=== PATIENT | female | born 1995 | race Two or more races ===

== ENCOUNTER 2024-06-19 13:06 | Emergency (ER) | payer MEDICAID, SELFPAY ==
[2024-06-19 13:38] VITALS: BP 105/69; PULSE 96; RESP 16; TEMP 37.1; O2SAT 100; BMI 21.0
--- NOTE | 2024-06-19 13:42 | XR_ITS ---
Examination: Complete OB ultrasound, less than 14 weeks, transabdominal Date and time of exam: June 19, 2024 1348 hrs. Indications: Vaginal bleeding lower back pain beginning today Technique: Obstetrical ultrasound images less than 14 weeks performed via transabdominal imaging Findings: A normal shaped single intrauterine gestation is present in the uterus. pole 7.3 cm corresponds to 13 weeks 3 days gestational age Cardiac motion 160 BPM Placenta posterior No subchorionic hemorrhage Ultrasonographic survey of visible and placental structures unremarkable. Amniotic fluid volume appears appropriate for this estimated gestational age. Right ovary 3.8 x 3.0 x 3.2 cm arterial flow Left ovary obscured by bowel gas Impression: Viable intrauterine gestation 13 weeks 3 days.
--- NOTE | 2024-06-19 13:42 | PD.EDRME ---
Rapid Medical Screening Exam RME Arrival date/time: 06/19/24 13:06 29-year-old female presents to the emerged department with complaints of vaginal bleeding approximately 13 weeks Chief Complaint: Vaginal Bleeding Time Seen by Provider: 06/19/24 13:23 Vital signs: Vital Signs Temperature 98.7 F 06/19/24 13:38 Pulse Rate 96 06/19/24 13:38 Respiratory Rate 16 06/19/24 13:38 Blood Pressure 105/69 06/19/24 13:38 Pulse Oximetry (%) 100 06/19/24 13:38 Oxygen Delivery Method Room Air 06/19/24 13:38
[2024-06-19 15:31] LABS: Collection Type, Urine Clean Catch
[2024-06-19 15:33] LABS: Basophils % (Auto) 0 % (0-2.5); Eosinophils % (Auto) 0 % (0-10); Hematocrit 37.4 % (36.0-46.0); Hemoglobin 12.2 g/dL (12.0-16.0); Immature Granulocytes % (Auto) 0 % (0-0); Immature Granulocytes Auto 0.01 Thou/mm3 (0.00-0.00); Lymphocytes # (Auto) 0.8 Thou/mm3 (1.0-4.8); Lymphocytes % (Auto) 19 % (10-50); Mean Corpuscular HGB Conc 32.6 g/dl (31.0-37.0); Mean Corpuscular Hemoglobin 26.5 pg (25.0-35.0); Mean Corpuscular Volume 81 fL (80-100); Monocytes # (Auto) 0.3 Thou/mm3 (0.0-0.8); Monocytes % (Auto) 6 % (0-12); Neutrophils # (Auto) 3.4 Thou/mm3 (1.8-7.7); Neutrophils % (Auto) 75 % (37-80); Nucleated Red Blood Cell % 0 /100 WBC (0); Platelet Count 278 Thou/mm3 (140-440); RDW Standard Deviation 46.9 fL (36.4-46.3); White Blood Count 4.5 Thou/mm3 (3.6-11.0)
--- NOTE | 2024-06-19 15:54 | EDNOTE_ITS ---
ED General RME/HPI General Chief complaint: Vaginal Bleeding Stated complaint: 13 weeks OB, vaginal bleeding today Time Seen by Provider: 06/19/24 13:23 Arrival date/time: 06/19/24 13:06 CC: Vaginal bleeding HPI ongoing for the past 3 hours patient is vague at describing where there is vaginal spotting or vaginal bleeding but denies any clots. The patient is a at estimated 13 weeks denies lower back pain abdominal cramping nausea vomiting headache or fever. RME / HPI RME / HPI narrative: 06/19/24 13:06 29-year-old female presents to the emerged department with complaints of vaginal bleeding approximately 13 weeks Related Data Previous Rx's ?Medication ?Instructions ?Recorded Hydrocodone/Acetaminophen * (NORCO 1 tab PO Q4H PRN ABDOMINAL PAIN 04/15/17 5/325 *) #30 tabs cephalexin 500 mg capsule 500 mg PO Q12H #14 caps 06/19/24 Allergies Allergy/AdvReac Type Severity Reaction Status Date / Time NKA* Allergy Uncoded 07/19/20 14:02 Review of Systems Review of Systems Narrative Review of Systems: GEN: No fever, no chills, no weight loss EYES: No discharge, no visual changes, no pain HEENT: No ear pain, no congestion, no sore throat PULM: No shortness of breath, no cough, no congestion CV: No chest pain, no dyspnea on exertion, no palpitations GI: No nausea, no vomiting, no diarrhea, no pain, no constipation : No frequency, no urgency, no dysuria MUSC/SKEL: No joint pain, no back pain SKIN: No rash PSYCH: No hallucinations, no depression HEME/LYMPH: No easy bleeding or bruising tendencies NEURO: No weakness, no headache Past Medical History Past Medical History CARDIAC: Negative Congestive Heart Failure RESPIRATORY: Negative Chronic Obstructive Pulmonary Disease (COPD) GENITOURINARY: Negative Renal Disease ENDOCRINE: Negative Diabetes Mellitus Type 1 or Diabetes Mellitus Type 2 Surgical History SURGICAL: Positive Section Social History SMOKING STATUS: Never smoker ED Exam Narrative Physical exam: [General: Not in any acute distress Head normocephalic HEENT: Eyes within acceptable limits Neck is supple nontender Chest equal chest rise nontender to palpation Respiratory: Clear to auscultation no wheezes crackles or rubs CV: Rate rhythm is regular no murmurs rubs or clicks Abdomen is distended secondary to body habitus soft nontender no masses positive bowel sounds all 4 quadrants Back: No CVA tenderness no spinous process tenderness from cervical spine thoracic and lumbar spine Skin: Intact no petechiae rash induration ulceration or crepitus Extremities: Moving all extremities against resistance cap refill less than 2 seconds neurosensory intact Neuro: Awake alert oriented x3 Glascow coma 15 no focal deficits] Course Quality Measures none Orders Category Date Time Status US OB <= 14 weeks fetus Stat Exams 06/19/24 13:42 Completed ABO/RH Type Stat Lab 06/19/24 15:05 Completed Beta HCG,Quantitative Stat Lab 06/19/24 15:05 Completed CBC Stat Lab 06/19/24 15:05 Completed Comprehensive Metabolic Panel Stat Lab 06/19/24 15:05 Completed UA [Urinalysis] Stat Lab 06/19/24 15:25 Completed Urine Culture Stat Lab 06/19/24 15:25 Received Vital Signs Vital signs: Vital Signs Temperature 98.7 F 06/19/24 13:38 Pulse Rate 96 06/19/24 13:38 Respiratory Rate 16 06/19/24 13:38 Blood Pressure 105/69 06/19/24 13:38 Pulse Oximetry (%) 100 06/19/24 13:38 Oxygen Delivery Method Room Air 06/19/24 13:38 [facility] Patient data External records reviewed:: [facility] previous records Clinical information provided by:: patient and spouse Social determinants that could affect healthcare access:: none Patient has the following chronic illnesses:: None How is presenting disease/condition affected by chronic disease/condition?: u neffected by Evaluation data The following diagnostics were reviewed and interpreted by me:: lab results and radiology exam(s) Lab and/or radiology exams considered but not ordered:: Ultrasound shows a single IUP 13 weeks 3 days heart tones are 160s CBC shows no acute electrolyte imbalances renal impairment transaminitis or T. bili elevation. Quantitative hCG is 76,000, urine is positive for urinary tract infection ABO Rh is positive. Interpretation Summary: Single IUP, UTI Medications Medications considered but not ordered:: None Medication administrations:: None Consultations Consultation(s) initiated? (list below): No Diagnosis Differential Diagnosis ED Complaint MDM: UTI SAB ectopic IUP Most likely diagnosis given after review of the tests above:: First trimester vaginal bleeding urinary tract infection Admission Indicated Admission indicated?: not indicated Explain why admission is indicated or not indicated:: Stable for outpatient follow-up Admission Request Was there a request for admission?: No Disposition Plan Disposition Plan: Discharge Discharge Attestation Discharge Attestation: The patient and all family members were given an opportunity to ask questions and understood the discharge instructions. Discharge instructions specifically effects, indications for sooner follow up or return to the emergency department, and the expected course of current diagnosis. Patient condition: Stable Medical Decision Making Differential Diagnosis Differential Diagnosis: UTI SAB ectopic IUP Lab Data 06/19/24 15:05 06/19/24 15:05 Labs: Lab Results 06/19/24 06/19/24 Range/Units 15:05 15:25 WBC 4.5 (3.6-11.0) Thou/mm3 RBC 4.60 (4.00-5.20) Miln/mm3 Hgb 12.2 (12.0-16.0) g/dL Hct 37.4 (36.0-46.0) % MCV 81 (80-100) fL MCH 26.5 (25.0-35.0) pg MCHC 32.6 (31.0-37.0) g/dl RDW Std Deviation 46.9 H (36.4-46.3) fL Plt Count 278 (140-440) Thou/mm3 Neut % (Auto) 75 (37-80) % Lymph % (Auto) 19 (10-50) % Thomas % (Auto) 6 (0-12) % Eos % (Auto) 0 (0-10) % Baso % (Auto) 0 (0-2.5) % Neut # (Auto) 3.4 (1.8-7.7) Thou/mm3 Lymph # (Auto) 0.8 L (1.0-4.8) Thou/mm3 Thomas # (Auto) 0.3 (0.0-0.8) Thou/mm3 Eos # (Auto) 0.0 (0.0-0.5) Thou/mm3 Baso # (Auto) 0.0 (0.0-0.2) Thou/mm3 Immature Gran # (Auto) 0.01 H (0.00-0.00) Thou/mm3 Absolute Nucleated RBC 0.00 (0.00-0.00) Thou/mm3 Immature Gran % 0 (0-0) % Nucleated RBC % 0 (0) /100 WBC Sodium 136 (136-145) mMol/L Potassium 3.9 (3.4-5.1) mMol/L Chloride 103 (98-107) mMol/L Carbon Dioxide 22.2 (20.0-31.0) mMol/L Anion Gap 11 (7-16) BUN 8 L (9-23) mg/dL Creatinine 0.7 (0.6-1.3) mg/dL Estim Creat Clear Calc 93.8 (>60) mL/min eGFR > 60 (60 - ) See Note BUN/Creatinine Ratio 11 L (12-20) Ratio Glucose 78 (74-106) mg/dL Calculated Osmolality 269 L (275-295) Calcium 9.7 (8.3-10.6) mg/dL Corrected Calcium 9.7 (8.5-10.1) mg/dL Total Bilirubin 0.4 (0.3-1.2) mg/dL AST 16 (0-34) U/L ALT 12 (10-49) U/L Alkaline Phosphatase 52 (46-116) U/L Total Protein 7.6 (5.7-8.2) gm/dL Albumin 4.9 (3.5-5.0) gm/dL Globulin 2.7 (2.3-3.5) gm/dL Albumin/Globulin Ratio 1.8 (1.2-2.2) Beta HCG, Quant 57114 (<5.0) mIU/mL Ur Collection Type Clean Catch Urine Color Brown A (Lt Yel-Yel) Urine Clarity Hazy (Clear/Hazy) Urine pH 6.0 (5.0-7.0) Ur Specific [place] 1.013 (1.001-1.035) Urine Protein 2+ A (Neg - Trace) Urine Glucose (UA) Negative (Negative) Urine Ketones 1+ A (Negative) Urine Blood 3+ A (Negative) Urine Nitrite Positive (Negative) Urine Bilirubin Negative (Negative) Urine Urobilinogen (Auto) Negative (0.0-1.0) mg/dL Ur Leukocyte Esterase Positive (Negative) Urine RBC 1394 H (0-3) /hpf Urine WBC 37 H (0-5) /hpf Ur Squamous Epith Cells 4 (0-5) /hpf Urine Bacteria 3+ A (None) Urine Sperm Present A (None) Blood Type O Negative Blood Bank Wristband ID Yes Discharge Plan Plan Patient Disposition: HOME (Self Care) Patient condition on transfer: Stable Prescriptions/Referrals Prescriptions/Med Rec: New cephalexin 500 mg capsule 500 mg PO Q12H Qty: 14 0RF No Action Hydrocodone/Acetaminophen * (NORCO 5/325 *) 1 TAB tablet 1 tab PO Q4H PRN (Reason: ABDOMINAL PAIN) Qty: 30 0RF Referrals: Demetri Coronado MD [Primary Care Provider] - In 1 week Problem List Clinical Impression: Vaginal bleeding in patient after first trimester, UTI (urinary tract infection) due to urinary indwelling catheter Patient/Caregiver Discharge Instructions Education Materials: Bleeding During Early , Urinary Tract Infections in Women Additional Instructions: Take the medications as prescribed follow-up with your OB if there is a worsening of symptoms including vaginal bleeding vaginal discharge return the emergency room for reevaluation. Print Language: Kyrgyz Stand Alone Forms: María Award Info., Patient Portal Info Letter, Work/School Release PA/WALLY Supervising Physician MAGGIE/WALLY Supervising Physician: Jensen Hong ENP
[2024-06-19 15:59] LABS: Bacteria,Urine 3+; Bilirubin,Urine Negative (Negative); Blood,Urine 3+ (Negative); Clarity,Urine Hazy (Clear/Hazy); Color,Urine Brown (Lt Yel-Yel); Glucose, Urine Negative (Negative); Ketones,Urine 1+ (Negative); Leukocyte Esterase,Urine Positive (Negative); Nitrite,Urine Positive (Negative); Protein,Urine 2+ (Neg - Trace); RBC,Urine 1394 /hpf (0-3); Specific Gravity,Urine 1.013 (1.001-1.035); Sperm,Urine Present; Squamous Epithelial Cell,Urine 4 /hpf (0-5); Urobilinogen,Urine Negative mg/dL (0.0-1.0); WBC,Urine 37 /hpf (0-5)
[2024-06-19 16:04] LABS: Alanine Aminotransferase 12 U/L (10-49); Albumin, Serum 4.9 gm/dL (3.5-5.0); Albumin/Globulin Ratio 1.8 (1.2-2.2); Alkaline Phosphatase 52 U/L (46-116); Anion Gap 11 (7-16); Aspartate Amino Transferase 16 U/L (0-34); BUN/Creatinine Ratio 11 Ratio (12-20); Bilirubin,Total 0.4 mg/dL (0.3-1.2); Blood Urea Nitrogen 8 mg/dL (9-23); Calcium 9.7 mg/dL (8.3-10.6); Calcium (Corrected) 9.7 mg/dL (8.5-10.1); Carbon Dioxide 22.2 mMol/L (20.0-31.0); Chloride 103 mMol/L (98-107); Creatinine (Component) 0.7 mg/dL (0.6-1.3); Estimated Creatinine Clearance 93.8 mL/min (>60); Globulin 2.7 gm/dL (2.3-3.5); Glucose 78 mg/dL (74-106); Osmolality,Calculated 269 (275-295); Potassium 3.9 mMol/L (3.4-5.1); Sodium 136 mMol/L (136-145); Total Protein 7.6 gm/dL (5.7-8.2); eGFR > 60 See Note
[2024-06-19 16:21] LABS: Beta HCG,Quantitative 76701 mIU/mL (<5.0)
[2024-06-19 16:47] VITALS: BP 108/77; PULSE 60; RESP 16; TEMP 36.9; O2SAT 99
== END 2024-06-19 16:45 | disposition home or self-care (01) ==
PROVIDERS: Nurse Practitioner Primary Care; Emergency Provider Emergency Medicine; PCP Family Medicine
DX: O20.9 Hemorrhage in early pregnancy, unspecified (principal); O23.41 Unspecified infection of urinary tract in pregnancy, first trimester; Z3A.13 13 weeks gestation of pregnancy
CPT/HCPCS: 36415; 76801; 80053; 81001; 84702; 85025; 86900; 86901; 87077; 87086; 87186; 99284

== ENCOUNTER 2025-02-06 15:36 | Outpatient (AMBR) | payer SELFPAY ==
--- NOTE | 2025-02-07 12:02 | LAC.VISIT ---
Assessment LAC Breast Assessment Breast Assessment Bilateral: Breast Assessment Comment: moms breasts are medium sized. they are soft, slightly full Alternative Milk Expression Alternative Milk Expression Alternative Method Used: Yes Method Used: Pumping Alternative Method Comment: mom states not pumping very often, maybe 4 times a day. Alternative Method Used Reason: Poor Feeding LAC Assessment Breast Feeding Assessment Date of : 12/23/24 Current Age of baby: 2 (months) Weight: 3260.195 g Current weight of baby: 4252.428 g Breast Feeding Ability: Fair Complications Comment: baby appears to have tongue tie and lip tie, he is struggling to stay on the breast without immediatley falling asleep. mom states that even bottle feeds are taking a very long time. baby can not latch onto the bottle nipple and dribbles a lot. also has clicking noises during feeds either on breast or bottle nipple. after observation of breast feed, baby did have clicking noises as well as a dimple in his cheek, showing that he was not latching very well. baby tolerated the nipple shield well and fed for about 8 minutes. he fel asleep and did wake up and start to cry. explained that baby is not transferring milk very well Activity Level: Awake / Alert and Crying [place] Muscle Tone: Tense Suck Quality: Tongue Retracts Effective Suck: Yes Swallow: Observed [place] Jaw: Receding and Clentched [place] Lip Seal: Poor, Chomping and Tight Lips Feeding Posistion: Cradle Additional Latch or Posistion Assistance Needed: Moderate Breast Feeding Comment: baby tolerated feed well with nipple shield. although he did not stay on the breast for more than 8 minutes. baby did transfer milk, was fussy even though he was getting milk. mom states that he is very gassy and acts like he has colic . he shlomo all the time during the day and doesn't settle even after feeds. LAC Intervention Interventions Tools: Nipple Shield and Pump Nipple Shield Size: Medium Techniques Discussed: Latch, Position and Pumping Discharge Follow Up Appointment Date and Time: day of/or after consult with oral surgeon or dentist Other Referral Made: Yes Feeding Preference at Discharge: Breast Milk and Formula LAC Latch Score LATCH Score Latch: Repeat Attempt to Hold Nipple Audible Swallow: Few, With Stimulation Nipple Type: Everted After Stimulation Comfort: Soft, Nontender Hold: Minimal Assistance Needed Total Score: 7 LAC Oral Assessment Oral Assessment Prenulum Level: Posterior Lip: Tight Upper Lip Palate: High Oral Assessment Comment: baby also exhibits receding chin causing baby to hold nipple in the mouth effectively. Dental Referral made: Yes (Dr. Muir) LAC Education Education : Education Topics: Infant Stomach Capacity, Milk Production, Suppression with Formula Use, Risk of Improper Latch Position, Signs of Adequate Intake and Stomach Capacity With Regard to Formula Teaching Methods: Electronic Education / Instruction, Verbal instruction and Demonstration Resource Information Given: [facility] Services and Dental Referral OP DC Assessment Discharge Follow Up Appointment Date and Time: day of/or after consult with oral surgeon or dentist Other Referral Made: Yes Visit Complete?: Yes
== END 2025-02-17 23:59 | disposition home or self-care (01) ==
LOC: HODLAC 15:36
DX: Z39.1 Encounter for care and examination of lactating mother (principal)

== ENCOUNTER 2025-02-13 16:42 | Outpatient (AMBR) | payer SELFPAY ==
--- NOTE | 2025-02-14 17:02 | LAC.VISIT ---
Assessment Alternative Milk Expression Alternative Milk Expression Alternative Method Used: Yes Method Used: Pumping Alternative Method Used Reason: Poor Feeding LAC Assessment Breast Feeding Assessment Breast Feeding Comment: Baby is doing a little better, he had tongue tie, lip tie and buccal pad revision yesterday with Dr. Muir. Mom really liked the doctor and feels that he did a thourogh job with baby. She states that is getting a little easier and baby staying at the beast longer and transfering bettermilk supply. LAC Intervention Interventions Tools: Nipple Shield Discharge Follow Up Appointment Date and Time: as needed Feeding Preference at Discharge: Breast Milk with Supplementation LAC Latch Score LATCH Score Latch: Repeat Attempt to Hold Nipple Audible Swallow: Spontaneous, Intermittent, Frequent Nipple Type: Everted After Stimulation Comfort: Soft, Nontender Hold: Minimal Assistance Needed Total Score: 8 LAC [place] Oral Assessment [place] Oral Assessment Prenulum Level: Normal Lip: Normal Exam Palate: Normal / Intact Dental Referral made: No OP DC Assessment Discharge Follow Up Appointment Date and Time: as needed Visit Complete?: Yes
== END 2025-02-17 23:59 | disposition home or self-care (01) ==
LOC: HODLAC 16:42
DX: Z39.1 Encounter for care and examination of lactating mother (principal)

== ENCOUNTER 2025-03-17 19:41 | Emergency (ER) | payer MEDICAID, SELFPAY ==
[2025-03-17 19:42] VITALS: BMI 28.1
[2025-03-17 20:56] VITALS: BP 119/72; PULSE 69; RESP 20; TEMP 37; O2SAT 98
--- NOTE | 2025-03-17 21:00 | XR_ITS ---
Examination: CT abdomen and pelvis without contrast. Coronal 3-D reconstructions. Sagittal 2-D reconstructions. Date and time of exam:March 09, 2025 10:34 PM Indications: Left-sided abdominal pain radiating to the back beginning 3 months ago CTDI: vol (mGy): 7.79 DLP: (mGycm): 379 Technique: Axial images of the abdomen have been obtained, 3 mm slice thickness Intravenous contrast material has not been administered. Low dose protocols were performed. One or more of the following dose reduction techniques were used; automated exposure control, adjustment of the mA and/or KV according to patient size, use of iterative reconstruction technique. Findings: No focal liver or splenic lesion Contracted gallbladder No pancreatic or adrenal mass No renal or ureteral calculi, no hydronephrosis Normal appendix Moderate to large amounts of stool throughout the colon No obstruction No diverticulitis Urinary bladder intact Anteverted uterus Osseous structures intact Impression: No renal or ureteral calculi, no hydronephrosis Normal appendix Moderate to large amounts of stool throughout the colon
[2025-03-17 21:30] LABS: Basophils # (Auto) 0.0 Thou/mm3 (0.0-0.2); Basophils % (Auto) 0 % (0-2.5); Eosinophils # (Auto) 0.1 Thou/mm3 (0.0-0.5); Eosinophils % (Auto) 2 % (0-10); Hematocrit 37.6 % (36.0-46.0); Hemoglobin 11.9 g/dL (12.0-16.0); Immature Granulocytes Auto 0.01 Thou/mm3 (0.00-0.00); Lymphocytes # (Auto) 2.0 Thou/mm3 (1.0-4.8); Lymphocytes % (Auto) 41 % (10-50); Mean Corpuscular HGB Conc 31.6 g/dl (31.0-37.0); Mean Corpuscular Hemoglobin 26.8 pg (25.0-35.0); Mean Corpuscular Volume 85 fL (80-100); Monocytes # (Auto) 0.4 Thou/mm3 (0.0-0.8); Monocytes % (Auto) 7 % (0-12); Neutrophils # (Auto) 2.4 Thou/mm3 (1.8-7.7); Neutrophils % (Auto) 49 % (37-80); Nucleated Red Blood Cell # 0.00 Thou/mm3 (0.00-0.00); Nucleated Red Blood Cell % 0 /100 WBC (0); Platelet Count 290 Thou/mm3 (140-440); RDW Standard Deviation 44.8 fL (36.4-46.3); Red Blood Count 4.44 Miln/mm3 (4.00-5.20); White Blood Count 4.8 Thou/mm3 (3.6-11.0)
[2025-03-17 21:39] LABS: Collection Type, Urine Clean Catch
[2025-03-17 21:46] LABS: Bilirubin,Urine Negative (Negative); Blood,Urine Negative (Negative); Clarity,Urine Clear (Clear/Hazy); Color,Urine Yellow (Lt Yel-Yel); Glucose, Urine Negative (Negative); Ketones,Urine Trace (Negative); Leukocyte Esterase,Urine Negative (Negative); Nitrite,Urine Negative (Negative); PH,Urine 6.0 (5.0-7.0); Protein,Urine Trace (Neg - Trace); RBC,Urine 2 /hpf (0-3); Specific Gravity,Urine 1.033 (1.001-1.035); Squamous Epithelial Cell,Urine 2 /hpf (0-5); Urobilinogen,Urine Negative mg/dL (0.0-1.0); WBC,Urine < 1 /hpf (0-5)
[2025-03-17 21:50] LABS: HCG Qualitative,Urine Negative
[2025-03-17 22:03] LABS: Alanine Aminotransferase 8 U/L (10-49); Albumin, Serum 4.7 gm/dL (3.5-5.0); Albumin/Globulin Ratio 1.9 (1.2-2.2); Alkaline Phosphatase 69 U/L (46-116); Anion Gap 10 (7-16); Aspartate Amino Transferase 13 U/L (0-34); BUN/Creatinine Ratio 13 Ratio (12-20); Bilirubin,Total 0.3 mg/dL (0.3-1.2); Blood Urea Nitrogen 20 mg/dL (9-23); Calcium 10.4 mg/dL (8.3-10.6); Calcium (Corrected) 10.4 mg/dL (8.5-10.1); Carbon Dioxide 26.1 mMol/L (20.0-31.0); Chloride 106 mMol/L (98-107); Creatinine (Component) 1.5 mg/dL (0.6-1.3); Estimated Creatinine Clearance 48.7 mL/min (>60); Globulin 2.5 gm/dL (2.3-3.5); Glucose 94 mg/dL (74-106); Lipase 30 U/L (12-53); Osmolality,Calculated 285 (275-295); Potassium 4.0 mMol/L (3.4-5.1); Sodium 142 mMol/L (136-145); Total Protein 7.2 gm/dL (5.7-8.2); eGFR 48 See Note
--- NOTE | 2025-03-17 23:32 | EDNOTE_ITS ---
ED Abdominal Pain RME/HPI General Chief Complaint: Abdominal Pain Stated complaint: LEFT SIDE ABDOMINAL PAIN Time seen by provider: 03/17/25 20:03 Arrival date/time: 03/17/25 19:41 This is a case of 29-year-old female with no medical history came in in the emergency room due to left-sided abdominal pain on and off for 3 days radiating to the left flank to left lumbar area patient denies any numbness weakness tingling sensation or incontinence to urine or stool patient has no bowel movement for 2 days she is constipated but no diarrhea no nausea no vomiting patient is status post section 3 months ago and currently breast- feeding Limitations: no limitations Related Data Previous Rx's ?Medication ?Instructions ?Recorded Hydrocodone/Acetaminophen * (NORCO 1 tab PO Q4H PRN AB DOMINAL PAIN 04/15/17 5/325 *) #30 tabs cephalexin 500 mg capsule 500 mg PO Q12H #14 caps 05/22 07/13 bisacodyl 10 mg rectal suppository 10 mg PA QDAY PRN c onstipation #12 03/17/25 (Dulcolax (bisacodyl)) ea ibuprofen 600 mg tablet 600 mg PO Q8H PRN pain #20 t abs 03/17/25 lidocaine 5 % topical patch 1 patch topical QDAY PRN p ain #15 03/17/25 (Lidoderm) ea polyethylene glycol 3350 17 17 g PO QDAY PRN constipat ion #119 03/17/25 gram/dose oral powder (Miralax) grams Allergies Allergy/AdvReac Type Severity Reaction Status Date / Time NKA* Allergy Uncoded 07/19/20 14:02 Review of Systems Review of Systems Systems Reviewed: All systems reviewed, normal except as documented Constitutional Constitutional: Reports system reviewed and no additional complaints, except as documented and Reports as per HPI ENT Ears, Nose, Mouth, and Throat: Denies dysphagia, Denies neck pain and Denies odynophagia Cardiovascular Cardiovascular: Reports system reviewed and no additional complaints, except as documented and Reports as per HPI Respiratory Respiratory: Reports system reviewed and no additional complaints, except as documented and Reports as per HPI Gastrointestinal Gastrointestinal: Reports system reviewed and no additional complaints, except as documented, Reports as per HPI, Reports abdominal pain, Denies belching, Denies bloating, Denies change in bowel habits, Denies change in stool character, Denies coffee ground emesis, Reports constipation, Denies cramping, Denies diarrhea, Denies dyspepsia, Denies dysphagia, Denies early satiety, Denies excessive flatus, Denies fecal incontinence, Denies heartburn, Denies hematemesis, Denies hematochezia, Denies loose stools, Denies melena, Denies nausea, Denies odynophagia, Denies tenesmus and Denies vomiting Musculoskeletal Musculoskeletal: Reports back pain and Denies neck pain Neurologic Neurologic: Reports system reviewed and no additional complaints, except as documented and Reports as per HPI Past Medical History Past Medical History CARDIAC: Negative Congestive Heart Failure RESPIRATORY: Negative Chronic Obstructive Pulmonary Disease (COPD) GENITOURINARY: Negative Renal Disease ENDOCRINE: Negative Diabetes Mellitus Type 1 or Diabetes Mellitus Type 2 Surgical History SURGICAL: Positive Section Social History SMOKING STATUS: Never smoker ED Exam General Limitations: Present no limitations General appearance: Present alert, in no apparent distress and other (Patient is awake alert oriented not in distress nontoxic looking well-hydrated well- nourished) Head Head exam: Present atraumatic, normocephalic and normal inspection Eye Eye exam: Present normal appearance, PERRL and EOMI ENT ENT exam: Present normal exam, normal oropharynx, mucous membranes moist and mucous membranes dry Neck Neck exam: Present normal inspection, full ROM and trachea midline; Absent tenderness, meningismus, lymphadenopathy or thyromegaly Chest Chest inspection: Present normal inspection and symmetric chest wall rise; Absent tenderness Respiratory Respiratory exam: Present normal lung sounds bilaterally; Absent respiratory distress, wheezes, stridor, accessory muscle use or prolonged expiratory phase Cardiovascular Cardiovascular exam: Present regular rate, normal rhythm and normal heart sounds; Absent bradycardia, tachycardia, irregular rhythm, systolic murmur or diastolic murmur Abdominal Exam Abdominal exam: Present soft and normal bowel sounds; Absent distention, tenderness, guarding, rebound, rigidity, diminished bowel sounds, hyperactive bowel sounds, hypoactive bowel sounds, trauma, psoas sign, obturator sign, heel tap sign, Cao's sign, Rovsing's sign, tenderness at McBurney's Point, ascites, mass or hernia Extremities Exam Extremities exam: Present normal inspection and full ROM Back Exam Back exam: Present normal inspection, full ROM, tenderness (Tenderness left lower ROM intact neurovascular intact no crepitation no deformity no paraspinal no paravertebral tenderness) and muscle spasm; Absent CVA tenderness (R), CVA tenderness (L), paraspinal tenderness, vertebral tenderness, rashes, sciatic notch tenderness (R), sciatic notch tenderness (L), straight leg raise (R) or straight leg raise (L) Neurological Exam Neurological exam: Present alert, oriented X3, CN II-XII intact, normal gait and reflexes normal; Absent motor sensory deficit Psychiatric Psychiatric exam: Present normal affect and normal mood Skin Skin exam: Present warm, dry, intact and normal color Course Quality Measures none Orders Category Date Time Status CT abdomen pelvis wo con Stat Exams 03/17/25 21:00 Completed CBC Stat Lab 03/17/25 21:09 Completed Comprehensive Metabolic Panel Stat Lab 03/17/25 21:09 Completed HCG Qualitative,Urine Stat Lab 03/17/25 21:25 Completed Lipase Stat Lab 03/17/25 21:09 Completed Urinalysis Stat Lab 03/17/25 21:25 Completed Vital Signs Vital signs: Vital Signs Temperature 98.6 F 03/17/25 20:56 Pulse Rate 69 03/17/25 20:56 Respiratory Rate 20 03/17/25 20:56 Blood Pressure 119/72 03/17/25 20:56 Pulse Oximetry (%) 98 03/17/25 20:56 Oxygen Delivery Method Room Air 03/17/25 20:56 Oxygen saturation is 98% in room air normal Abdominal Pain MDM MDM Narrative MDM Narrative:: This is a case of 29-year-old female with no medical history came in in the emergency room due to left-sided abdominal pain on and off for 3 days radiating to the left flank to left lumbar area patient denies any numbness weakness tingling sensation or incontinence to urine or stool patient has no bowel movement for 2 days she is constipated but no diarrhea no nausea no vomiting patient is status post section 3 months ago and currently breast- feeding physical examination patient is awake alert oriented not in distress nontoxic looking well-hydrated well-nourished vital signs stable BP stable not tachycardic not tachypneic not hypoxic patient noted abdomen soft normal active bowel sounds no tenderness no guarding no rebound no rigidity negative psoas negative straight or negative Rovsing's negative McBurney's negative Cao sign negative CVA tenderness noted mild tenderness on the left lumbar area no crepitation no deformity no redness leg raise exam is normal ROM intact neurovascular intact the rest of the physical examination and neurological exam is normal and unremarkable blood test showed no leukocytosis no anemia kidney a nd liver function is normal no electrolyte imbalance urinalysis normal lipase is normal CT scan showed a moderate stool suggestive of constipation based on my physical examination and history patient will be treated as constipation and back muscle spasm since patient is breast-feeding and able to give baclofen and Bentyl patient was given only ibuprofen for pain MiraLAX and Dulcolax for constipation and lighted Derm topical for pain in the back patient will follow- up with PCP in 2 days for reevaluation and for any worsening symptoms or any emergent condition return precaution in the ER was advised Patient was discharged with comfortable condition walking with stable gait. Patient verbalized no further complains explained diagnosis and answered patient question. Patient is comfortable with the proposed management plan including the need to follow up with his/her primary care physician and any specialist if applicable Discussed patient for any urgent condition or worsening sx, He/She needed to go to emergency room immediately or call 911. Patient acknowledge the responsibility to follow up as instructed and to monitor her/his symptoms. For any persistence of the symptoms for more than 3-5 days return precaution advised. Discussed the result of the test and was given printed discharge instruction Patient data External records reviewed:: [facility] previous records Clinical information provided by:: patient Social determinants that could affect healthcare access:: none Patient has the following chronic illnesses:: None How is presenting disease/condition affected by chronic disease/condition?: no chronic disease Evaluation data The following diagnostics were reviewed and interpreted by me:: lab results and radiology exam(s) Lab and/or radiology exams considered but not ordered:: Reviewed Interpretation Summary: Reviewed Medications / Prescriptions Medications or Prescriptions considered but not ordered:: Given Medication administrations:: Given Consultations Consultation(s) initiated? (list below): No Diagnosis Differential diagnosis abdominal pain: abdominal pain, acute appendicitis, calculus of kidney, constipation and diverticulitis Most likely diagnosis given after review of the tests above:: Abdominal pain constipation back muscle spasm Admission Indicated Admission indicated?: not indicated Explain why admission is indicated or not indicated:: Not indicated Admission Request Was there a request for admission?: No Admission Attestation Admission request attestation: Not indicated Disposition Plan Disposition Plan: Discharge Discharge Attestation Discharge Attestation: The patient and all family members were given an opportunity to ask questions and understood the discharge instructions. Discharge instructions specifically effects, indications for sooner follow up or return to the emergency department, and the expected course of current diagnosis. Patient condition: Stable Discharge Plan Plan Patient Disposition: HOME (Self Care) Patient condition on transfer: Stable Prescriptions/Referrals Prescriptions/Med Rec: New ibuprofen 600 mg tablet 600 mg PO Q8H PRN (Reason: pain) Qty: 20 0RF bisacodyl [Dulcolax (bisacodyl)] 10 mg suppository 10 mg PA QDAY PRN (Reason: constipation) Qty: 12 0RF polyethylene glycol 3350 [Miralax] 17 gram/dose powder 17 g PO QDAY PRN (Reason: constipation) Qty: 119 0RF Rx Instructions: Mix 17 g of MiraLAX to 8 ounces of oral juice or water and take daily as needed for constipation lidocaine [Lidoderm] 5 % adhesive patch,medicated 1 patch topical QDAY PRN (Reason: pain) Qty: 15 0RF Rx Instructions: leave on most painful area for up to 12 hrs No Action Hydrocodone/Acetaminophen * (NORCO 5/325 *) 1 TAB tablet 1 tab PO Q4H PRN (Reason: ABDOMINAL PAIN) Qty: 30 0RF cephalexin 500 mg capsule 500 mg PO Q12H Qty: 14 0RF Referrals: Demetri Coronado MD [Primary Care Provider, Family Practice] - In 1 week Problem List Clinical Impression: Abdominal pain, Constipation, Back muscle spasm Patient/Caregiver Discharge Instructions Education Materials: Abdominal Pain, ED Back Spasm, No Trauma, ED Constipation (Adult) Additional Instructions: Follow-up with your primary care physician in 2 days for reevaluation worsening symptoms or any emergent concern call 911 or go to the nearest emergency room ice pack and warm compress as needed for pain take your medication as directed high-fiber diet keep hydrated advised Print Language: Latvian Stand Alone Forms: María Award Info., Patient Portal Info Letter PA/CRECHE ATTENDANT Supervising Physician PA/WALLY Supervising Physician: Dr. Jay Jay Monzon
== END 2025-03-18 | disposition home or self-care (01) ==
PROVIDERS: Nurse Practitioner Family; Emergency Provider Emergency Medicine; PCP Family Medicine
DX: K59.00 Constipation, unspecified (principal); M62.830 Muscle spasm of back; R10.9 Unspecified abdominal pain
CPT/HCPCS: 36415; 74176; 80053; 81001; 81025; 83690; 85025; 99284